=== PATIENT | male | born 1995 | race Caucasian/White ===

== ENCOUNTER → 2023-08-19 | Outpatient (CLI) | payer OTHER | LOC: M OUTALCOH 09:34 | PROVIDERS: ATTEND Psychiatry & Neurology Psychiatry | DX: Z13.39 Encounter for screening examination for other mental health and behavioral disorders (principal) ==

== ENCOUNTER 2023-08-26 09:44 | Outpatient (RCR) | payer OTHER | END 2023-09-11 | LOC: M OUTALCOH 09:44 | PROVIDERS: ATTEND Psychiatry & Neurology Psychiatry | DX: F10.10 Alcohol abuse, uncomplicated (principal) ==